=== PATIENT | male | born 1960 | race African-American/Black ===

== ENCOUNTER 2022-03-08 08:48 | Outpatient (CLI) | payer BC ==
[~2022-03-08 08:48] MED LIST: Gadobenate Dimeglumine 529 MG/1 ML (20ML VIAL) ONE
[2022-03-08 09:45] LABS: Estimated GFR-MDRD - POC Greater than 90
== END 2022-03-08 08:49 | disposition home or self-care (01) ==
LOC: CSHMRI 08:48
PROVIDERS: ATTEND Neurological Surgery
DX: M48.062 Spinal stenosis, lumbar region with neurogenic claudication (principal); M47.816 Spondylosis without myelopathy or radiculopathy, lumbar region; M47.817 Spondylosis without myelopathy or radiculopathy, lumbosacral region
CPT/HCPCS: 72158; 82565; A9577

== ENCOUNTER 2022-10-20 07:08 | Outpatient (CLI) | payer MEDICARE ==
[2022-10-20] MEDS ORDERED: Iopamidol 370 76% 150 ML VIAL FS ONE (10:17)
== END 2022-10-20 07:09 | disposition home or self-care (01) ==
LOC: CSHCT 07:08
PROVIDERS: ATTEND Neurological Surgery
DX: M48.062 Spinal stenosis, lumbar region with neurogenic claudication (principal); M54.6 Pain in thoracic spine; I99.8 Other disorder of circulatory system; M47.816 Spondylosis without myelopathy or radiculopathy, lumbar region; Q76.49 Other congenital malformations of spine, not associated with scoliosis; M25.48 Effusion, other site; M47.814 Spondylosis without myelopathy or radiculopathy, thoracic region
CPT/HCPCS: 72146; 72148; 75635; 82565

== ENCOUNTER 2022-12-09 15:16 | Outpatient (CLI) | payer MEDICARE | END 2022-12-09 15:17 | disposition home or self-care (01) | LOC: CSHMRI 15:16 | PROVIDERS: ATTEND Internal Medicine | DX: I63.9 Cerebral infarction, unspecified (principal) | CPT/HCPCS: 70551 ==